=== PATIENT | female | born 1985 | race Two or more races ===

== ENCOUNTER 2021-01-26 06:00 | Day surgery (SDC) | payer OTHER ==
[~2021-01-26 06:00] MED LIST: SYNTHROID50 MCG PO; TOPROL XL100 M1 PO
== END 2021-01-26 14:40 | disposition home or self-care (01) ==
LOC: CIR.AMB 06:00
PROVIDERS: ATTEND Obstetrics & Gynecology
DX: O02.1 Missed abortion (principal); Z20.822 Contact with and (suspected) exposure to COVID-19

== ENCOUNTER 2021-02-02 22:20 | Inpatient (IN) | payer OTHER ==
[~2021-02-02] VITALS: Ht 165.1 cm; Wt 90.7 kg
== END 2021-02-03 09:03 | disposition home or self-care (01) | DRG 779 ==
LOC: ER 22:20 → OB/GYN 02-03 01:41
PROVIDERS: ADMIT Obstetrics & Gynecology; ATTEND Obstetrics & Gynecology
PROC: BU4CZZZ Ultrasonography of Uterus and Ovaries (ICD-10-PCS; principal; 2021-02-03)
DX: O03.1 Delayed or excessive hemorrhage following incomplete spontaneous abortion (principal); N93.9 Abnormal uterine and vaginal bleeding, unspecified